=== PATIENT | female | born 1985 | race African-American/Black ===

== ENCOUNTER 2016-09-13 12:25 | Emergency (ER) | payer BC ==
[~2016-09-13] VITALS: Ht 180.3 cm; Wt 108.9 kg
[~2016-09-13 12:25] MED LIST: HYDR-2666 PO
[2016-09-13] MEDS ORDERED: IV NORMAL SALINE 1000ML BAG 1,000 ML IV ONE (13:15)
[2016-09-13 13:31] LABS: BASO % 1 % (0-3); EOS % 0 % (0-3); HEMATOCRIT 45.1 % (36.0-47.0); HEMOGLOBIN 14.4 g/dL (12.0-15.5); LYMPH # 1.4 x10^3/uL (1.0-4.8); LYMPH % 18 % (24-48); MEAN CORPUSCULAR HEMOGLOBIN 27 pg (25-35); MEAN CORPUSCULAR HGB CONC 32 g/dL (31-37); MEAN CORPUSCULAR VOLUME 83 fL (79-100); MONO % 9 % (0-9); NEUT % 73 % (31-73); PLATELET COUNT 177 x10^3/uL (140-400); RED BLOOD COUNT 5.42 x10^6/uL (3.50-5.40); RED CELL DISTRIBUTION WIDTH 13.4 % (11.5-14.5); WHITE BLOOD COUNT 7.8 x10^3/uL (4.0-11.0)
[2016-09-13 13:33] LABS: BILIRUBIN,URINE MODERATE (NEG); GLUCOSE,URINE 100 mg/dL (NEG)
[2016-09-13 13:34] LABS: BACTERIA,URINE 0 /HPF (0-FEW); CREATININE 0.9 mg/dL (0.6-1.0); NITRITE,URINE POSITIVE (NEG); POTASSIUM 3.7 mmol/L (3.5-5.1); PROTEIN,URINE >=300 mg/dL (NEG-TRACE); RBC,URINE 0 /HPF (0-2); SQUAMOUS EPITHELIAL CELL,UR FEW /LPF; UROBILINOGEN,URINE 0.2 mg/dL (0.2 mg/dL)
[2016-09-13 13:42] LABS: ALBUMIN 5.1 g/dL (3.4-5.0); ALBUMIN/GLOBULIN RATIO 1.2 (1.0-1.7); TOTAL BILIRUBIN 1.8 mg/dL (0.2-1.0); TOTAL PROTEIN 9.5 g/dL (6.4-8.2)
[2016-09-13 14:30] VITALS: BP 135/81
--- NOTE | 2016-09-13 14:40 | PHYS DOC ---
Past Medical History Past Medical History: Anxiety, Depression, Fibromyalgia, Other Additional Past Medical Histor: cervical pinched nerve Past Surgical History: No Surgical History Alcohol Use: Occasionally Drug Use: None Adult General Chief Complaint Chief Complaint: GI PROBLEM HPI HPI 30-year-old female presents with 2 day history of diarrhea. She states she has had some abdominal cramping. She denies any fever chills sweats nausea or vomiting. She denies any melena or hematochezia. No one else is been sick. [] Review of Systems Review of Systems Constitutional: Denies fever or chills [] Eyes: Denies change in visual acuity, redness, or eye pain [] HENT: Denies nasal congestion or sore throat [] Respiratory: Denies cough or shortness of breath [] Cardiovascular: No additional information not addressed in HPI [] GI: Per history of present illness : Denies dysuria or hematuria [] Musculoskeletal: Denies back pain or joint pain [] Integument: Denies rash or skin lesions [] Neurologic: Denies headache, focal weakness or sensory changes [] Endocrine: Denies polyuria or polydipsia [] Current Medications Current Medications Current Medications Medications (Trade) Dose Ordered Sig/Marie Start Time Stop Time Status Last Admin Dose Admin Sodium Chloride (Iv Sodium Chloride 0.9% 1000ml Bag) 1,000 ml @ 1,000 mls/hr 1X ONCE 09/13/16 13:15 09/13/16 14:14 DC 09/13/16 13:13 1,000 MLS/HR Allergies Allergies Allergies Coded Allergies Type Severity Reaction Last Updated Verified No Known Drug Allergies 01/29/14 No Physical Exam Physical Exam Constitutional: Well developed, well nourished, no acute distress, non-toxic appearance. [] HENT: Normocephalic, atraumatic, bilateral external ears normal, oropharynx moist, no oral exudates, nose normal. [] Eyes: PERRLA, EOMI, conjunctiva normal, no discharge. [] Neck: Normal range of motion, no tenderness, supple, no stridor. [] Cardiovascular:Heart rate regular rhythm, no murmur [] Lungs & Thorax: Bilateral breath sounds clear to auscultation [] Abdomen: Bowel sounds normal, soft, no tenderness, no masses, no pulsatile masses. [] Skin: Warm, dry, no erythema, no rash. [] Back: No tenderness, no CVA tenderness. [] Extremities: No tenderness, no cyanosis, no clubbing, ROM intact, no edema. [] Neurologic: Alert and oriented X 3, normal motor function, normal sensory function, no focal deficits noted. [] Psychologic: Affect normal, judgement normal, mood normal. [] Current Patient Data Vital Signs Vital Signs Date Time Temp Pulse Resp B/P Pulse Ox O2 Delivery O2 Flow Rate FiO2 09/13/16 12:38 98.7 100 20 100 Room Air 98.7 Lab Values Laboratory Tests Test 09/13/16 12:13 09/13/16 12:50 09/13/16 13:05 POC Urine HCG, Qualitative Hcg negative (Negative) Urine Collection Type Unknown Urine Color Yellow Urine Clarity Cloudy Urine pH 6.0 Urine Specific [place] >=1.030 Urine Protein >=300mg/dL (NEG-TRACE) Urine Glucose (UA) 100mg/dL (NEG) Urine Ketones (Stick) 40mg/dL (NEG) Urine Blood Trace (NEG) Urine Nitrite Positive (NEG) Urine Bilirubin Moderate (NEG) Urine Urobilinogen Dipstick 0.2mg/dL (0.2 mg/dL) Urine Leukocyte Esterase Trace (NEG) Urine RBC 0/HPF (0-2) Urine WBC 1-4/HPF (0-4) Urine Squamous Epithelial Cells Few/LPF Urine Bacteria 0/HPF (0-FEW) Sodium Level 141mmol/L (136-145) Potassium Level 3.7mmol/L (3.5-5.1) Chloride Level 102mmol/L (98-107) Carbon Dioxide Level 18mmol/L (21-32) L Anion Gap 21 (6-14) H Blood Urea Nitrogen 17mg/dL (7-20) Creatinine 0.9mg/dL (0.6-1.0) Estimated GFR (Cockcroft-Gault) 89.0 BUN/Creatinine Ratio 19 (6-20) Glucose Level 116mg/dL (70-99) H Calcium Level 10.0mg/dL (8.5-10.1) Total Bilirubin 1.8mg/dL (0.2-1.0) H Aspartate Amino Transferase (AST) 20U/L (15-37) Alanine Aminotransferase (ALT) 21U/L (14-59) Alkaline Phosphatase 79U/L (46-116) Total Protein 9.5g/dL (6.4-8.2) H Albumin 5.1g/dL (3.4-5.0) H Albumin/Globulin Ratio 1.2 (1.0-1.7) Lipase 102U/L (73-393) White Blood Count 7.8x10^3/uL (4.0-11.0) Red Blood Count 5.42x10^6/uL (3.50-5.40) H Hemoglobin 14.4g/dL (12.0-15.5) Hematocrit 45.1% (36.0-47.0) Mean Corpuscular Volume 83fL (79-100) Mean Corpuscular Hemoglobin 27pg (25-35) Mean Corpuscular Hemoglobin Concent 32g/dL (31-37) Red Cell Distribution Width 13.4% (11.5-14.5) Platelet Count 177x10^3/uL (140-400) Neutrophils (%) (Auto) 73% (31-73) Lymphocytes (%) (Auto) 18% (24-48) L Monocytes (%) (Auto) 9% (0-9) Eosinophils (%) (Auto) 0% (0-3) Basophils (%) (Auto) 1% (0-3) Neutrophils # (Auto) 5.7x10^3uL (1.8-7.7) Lymphocytes # (Auto) 1.4x10^3/uL (1.0-4.8) Monocytes # (Auto) 0.7x10^3/uL (0.0-1.1) Eosinophils # (Auto) 0.0x10^3/uL (0.0-0.7) Basophils # (Auto) 0.0x10^3/uL (0.0-0.2) Laboratory Tests 09/13/16 13:05 Laboratory Tests 09/13/16 12:50 EKG EKG [] Radiology/Procedures Radiology/Procedures [] Course & Med Decision Making Course & Med Decision Making Pertinent Labs and Imaging studies reviewed. (See chart for details) ED course: Evaluation reveals a 30-year-old healthy female with a benign physical exam. She had no diarrhea stools during the stay in the emergency department. She was given 1 L of IV fluid which she states made her feel better. ] Fito Disclaimer Dragon Disclaimer This electronic medical record was generated, in whole or in part, using a voice recognition dictation system. Departure Departure Impression: Primary Impression: Diarrhea Disposition: 01 HOME, SELF-CARE Condition: STABLE Referrals: UNKNOWN PCP NAME (PCP) Patient Instructions: Diarrhea Additional Instructions: Thank you for allowing us to participate in your care today. Followup with your primary care physician in 3 days if your symptoms do not improve. Return to the emergency department you have any new or concerning findings. This should be evaluated by the primary care physician and any necessary consulting services for continued management within a few days after discharge. Return to emergency room if you have any new or concerning symptoms including but not limited to fever, chills, nausea, vomiting, intractable pain, any new rashes, chest pain, shortness of air, uncontrolled bleeding, difficulty breathing, and/or vision loss. You may have been prescribed medication that can change in your level of thinking and ability to operate machinery. These medications include hydrocodone and Ativan. Also, Benadryl has been known to do this as well. Be sure to check with your pharmacist and ask if the medications you've prescribed can affect your level of consciousness. I recommend not operating heavy machinery or driving while on medication such as these. Problem Qualifiers Primary Impression: Diarrhea Diarrhea type: functional diarrhea Qualified Code: K59.1 - Functional diarrhea TEGAN SCOTT DO Sep 13, 2016 14:40
== END 2016-09-13 14:50 | disposition home or self-care (01) ==
LOC: ER 12:25
DX: R19.7 Diarrhea, unspecified (principal); R10.9 Unspecified abdominal pain; M79.7 Fibromyalgia
CPT/HCPCS: 36415; 80053; 81001; 81025; 83690; 85027; 87086; 96360; 99284; J7030

== ENCOUNTER 2017-01-16 19:39 | Emergency (ER) | payer BC ==
[~2017-01-16] VITALS: Ht 180.3 cm; Wt 102.5 kg
[~2017-01-16 19:39] MED LIST changes: -HYDR-2666 PO; +HYDR-2758 PO
[2017-01-16 20:26] VITALS: BP 145/85
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
== END 2017-01-16 20:50 | disposition home or self-care (01) ==
LOC: ER 19:39
DX: S90.31XA Contusion of right foot, initial encounter (principal); F41.9 Anxiety disorder, unspecified; F32.9 Major depressive disorder, single episode, unspecified; M79.7 Fibromyalgia; W23.0XXA Caught, crushed, jammed, or pinched between moving objects, initial encounter; Y93.89 Activity, other specified; Y92.89 Other specified places as the place of occurrence of the external cause; Y99.8 Other external cause status
CPT/HCPCS: 73630; 99284

== ENCOUNTER 2021-07-04 12:55 | Emergency (ER) | payer SELFPAY ==
[~2021-07-04] VITALS: Ht 162.6 cm; Wt 109.0 kg
[~2021-07-04 12:55] MED LIST changes: -HYDR-2758 PO; +HYDR-2761 PO
[2021-07-04] MEDS ORDERED: IV NORMAL SALINE 1000ML BAG 1,000 ML IV ONE (14:30)
[2021-07-04 14:38] LABS: BASO % 0 % (0-3); EOS # 0.1 x10^3/uL (0.0-0.7); EOS % 2 % (0-3); HEMATOCRIT 41.7 % (36.0-47.0); HEMOGLOBIN 13.7 g/dL (12.0-15.5); LYMPH # 1.7 x10^3/uL (1.0-4.8); LYMPH % 24 % (24-48); MEAN CORPUSCULAR HEMOGLOBIN 26 pg (25-35); MEAN CORPUSCULAR HGB CONC 33 g/dL (31-37); MEAN CORPUSCULAR VOLUME 78 fL (79-100); MONO # 0.5 x10^3/uL (0.0-1.1); MONO % 7 % (0-9); NEUT # 4.5 x10^3/uL (1.8-7.7); NEUT % 66 % (31-73); PLATELET COUNT 287 x10^3/uL (140-400); RED BLOOD COUNT 5.35 x10^6/uL (3.50-5.40); RED CELL DISTRIBUTION WIDTH 13.4 % (11.5-14.5); WHITE BLOOD COUNT 6.8 x10^3/uL (4.0-11.0)
[2021-07-04 14:49] LABS: CREATININE 0.8 mg/dL (0.6-1.0); GFR 98.8; POTASSIUM 3.8 mmol/L (3.5-5.1)
--- NOTE | 2021-07-04 14:53 | PHYS DOC ---
Past Medical History Past Medical History: Anxiety, Depression, Fibromyalgia, Other Additional Past Medical Histor: cervical pinched nerve (DAVE MARTINEZ APRN) Past Surgical History: No Surgical History (DAVE MARTINEZ APRN) Smoking Status: Current Every Day Smoker Alcohol Use: Occasionally Drug Use: None (DAVE MARTINEZ APRN) General Adult EDM: Chief Complaint: CHEST PAIN HPI: HPI: Patient is a 35-year-old female that presents today with substernal chest pain. Patient states the pain has been going on for a little over 7 days, patient states that she was diagnosed with COVID-19 on June 20, 2021 and she said since that time she has had some substernal chest pain with coughing and moving her arms. Patient denies shortness of air or fever. Patient states she has not had any Covid vaccines. Patient states she does smoke, she denies any long travel or swelling of bilateral legs. (DAVE MARTINEZ APRN) Review of Systems: Review of Systems: Constitutional: Denies fever or chills. [] Eyes: Denies change in visual acuity. [] HENT: Denies nasal congestion or sore throat. [] Respiratory: Denies cough or shortness of breath. [] Cardiovascular: Chest pain denies edema. [] GI: Denies abdominal pain, nausea, vomiting, bloody stools or diarrhea. [] : Denies dysuria. [] Musculoskeletal: Denies back pain or joint pain. [] Integument: Denies rash. [] Neurologic: Denies headache, focal weakness or sensory changes. [] Endocrine: Denies polyuria or polydipsia. [] Lymphatic: Denies swollen glands. [] Psychiatric: Denies depression or anxiety. [] (DAVE MARTINEZ [employer]) Heart Score: C/O Chest Pain: N/A Risk Factors: Risk Factors: DM, Current or recent (<one month) smoker, HTN, HLP, family hi story of CAD, obesity. Risk Scores: Score 0 - 3: 2.5% MACE over next 6 weeks - Discharge Home Score 4 - 6: 20.3% MACE over next 6 weeks - Admit for Clinical Observation Score 7 - 10: 72.7% MACE over next 6 weeks - Early Invasive Strategies (DAVE MARTINEZ APRN) Current Medications: Current Medications Medications (Trade) Dose Ordered Sig/Marie Start Time Stop Time Status Last Admin Dose Admin Sodium Chloride 1,000 ml @ 999 mls/hr 1X ONCE 07/04/21 14:30 07/04/21 15:30 (DAVE MARTINEZ APRN) Allergies: Allergies: Allergies Coded Allergies Type Severity Reaction Last Updated Verified No Known Drug Allergies 01/29/14 No (DAVE MARTINEZ APRN) Physical Exam: PE: Constitutional: Well developed, well nourished, no acute distress, non-toxic appearance. [] HENT: Normocephalic, atraumatic, bilateral external ears normal, oropharynx moist, no oral exudates, nose normal. [] Eyes: PERRLA, EOMI, conjunctiva normal, no discharge. [] Neck: Normal range of motion, no tenderness, supple, no stridor. [] Cardiovascular:Heart rate regular rhythm, no murmur [] Lungs & Thorax: Bilateral breath sounds clear to auscultation, patient does have chest pain with palpation to the chest wall. No lacerations, contusions, or ecchymosis noted. Abdomen: Bowel sounds normal, soft, no tenderness, no masses, no pulsatile ma sses. [] Skin: Warm, dry, no erythema, no rash. [] Back: No tenderness, no CVA tenderness. [] Extremities: No tenderness, no cyanosis, no clubbing, ROM intact, no edema. [] Neurologic: Alert and oriented X 3, normal motor function, normal sensory function, no focal deficits noted. [] Psychologic: Affect normal, judgement normal, mood normal. [] (DAVE MARTINEZ APRN) Current Patient Data: Labs: Laboratory Tests Test 07/04/21 14:10 White Blood Count 6.8 x10^3/uL Red Blood Count 5.35 x10^6/uL Hemoglobin 13.7 g/dL Hematocrit 41.7 % Mean Corpuscular Volume 78 fL Mean Corpuscular Hemoglobin 26 pg Mean Corpuscular Hemoglobin Concent 33 g/dL Red Cell Distribution Width 13.4 % Platelet Count 287 x10^3/uL Neutrophils (%) (Auto) 66 % Lymphocytes (%) (Auto) 24 % Monocytes (%) (Auto) 7 % Eosinophils (%) (Auto) 2 % Basophils (%) (Auto) 0 % Neutrophils # (Auto) 4.5 x10^3/uL Lymphocytes # (Auto) 1.7 x10^3/uL Monocytes # (Auto) 0.5 x10^3/uL Eosinophils # (Auto) 0.1 x10^3/uL Basophils # (Auto) 0.0 x10^3/uL D-Dimer (Lina) < 0.27 ug/mlFEU Sodium Level 139 mmol/L Potassium Level 3.8 mmol/L Chloride Level 102 mmol/L Carbon Dioxide Level 30 mmol/L Anion Gap 7 Blood Urea Nitrogen 8 mg/dL Creatinine 0.8 mg/dL Estimated GFR (Cockcroft-Gault) 98.8 BUN/Creatinine Ratio 10 Glucose Level 89 mg/dL Calcium Level 9.0 mg/dL Total Bilirubin 0.6 mg/dL Aspartate Amino Transf (AST/SGOT) 24 U/L Alanine Aminotransferase (ALT/SGPT) 34 U/L Alkaline Phosphatase 106 U/L Total Protein 8.1 g/dL Albumin 3.8 g/dL Albumin/Globulin Ratio 0.9 Current Medications Medications (Trade) Dose Ordered Sig/Marie Route PRN Reason Start Time Stop Time Status Last Admin Dose Admin Sodium Chloride 1,000 ml @ 999 mls/hr 1X ONCE IV 07/04/21 14:30 07/04/21 15:30 DC 07/04/21 14:30 Laboratory Tests Test 07/04/21 14:10 White Blood Count 6.8 x10^3/uL (4.0-11.0) Red Blood Count 5.35 x10^6/uL (3.50-5.40) Hemoglobin 13.7 g/dL (12.0-15.5) Hematocrit 41.7 % (36.0-47.0) Mean Corpuscular Volume 78 fL (79-100) L Mean Corpuscular Hemoglobin 26 pg (25-35) Mean Corpuscular Hemoglobin Concent 33 g/dL (31-37) Red Cell Distribution Width 13.4 % (11.5-14.5) Platelet Count 287 x10^3/uL (140-400) Neutrophils (%) (Auto) 66 % (31-73) Lymphocytes (%) (Auto) 24 % (24-48) Monocytes (%) (Auto) 7 % (0-9) Eosinophils (%) (Auto) 2 % (0-3) Basophils (%) (Auto) 0 % (0-3) Neutrophils # (Auto) 4.5 x10^3/uL (1.8-7.7) Lymphocytes # (Auto) 1.7 x10^3/uL (1.0-4.8) Monocytes # (Auto) 0.5 x10^3/uL (0.0-1.1) Eosinophils # (Auto) 0.1 x10^3/uL (0.0-0.7) Basophils # (Auto) 0.0 x10^3/uL (0.0-0.2) Laboratory Tests 07/04/21 14:10 Vital Signs: Vital Signs Date Time Temp Pulse Resp B/P (MAP) Pulse Ox O2 Delivery O2 Flow Rate FiO2 07/04/21 16:04 98 16 143/89 (107) 98 07/04/21 13:50 98.7 115 20 149/77 (101) 99 Room Air 98.7 Vital Signs Date Time Temp Pulse Resp B/P (MAP) Pulse Ox O2 Delivery O2 Flow Rate FiO2 07/04/21 13:50 98.7 115 20 149/77 (101) 99 Room Air 98.7 (DAVE MARTINEZ [employer]) EKG: EKG: EKG done at [address] Brice at 1322 sinus rhythm no ectopy at a rate of 95 no STEMI HI interval of 148 ms with a QTC of 453 ms [] (DAVE MARTINEZ [employer]) Radiology/Procedures: Radiology/Procedures: REASON: cough, covid + PROCEDURE: CHEST AP ONLY EXAM: Chest, single view. HISTORY: Cough. Covid 19. COMPARISON: None. FINDINGS: A frontal view of the chest is obtained. There is no infiltrate, pleural effusion or pneumothorax. The heart is normal in size. IMPRESSION: No acute pulmonary finding. Electronically signed by: Harika Head MD (07/04/2021 2:53 PM) [id number][] (DAVE MARTINEZ APRN) Course & Med Decision Making: Course & Med Decision Making Pertinent Labs and Imaging studies reviewed. (See chart for details) 1545 did review radiological and laboratory results with patient. Did inform her there is no acute process at this time. Did inform her that post Covid we are seeing patients with a delayed recovery from the COVID-19, and told her to follow-up with her primary care physician or one of the clinics that was provided on the brochure for further management of this. Patient denies smoking, I did inform her that a cool-mist humidifier may help with breathing. Patient is agreeable with the plan of care going home and manage as an outpatient basis and following up with her primary care physician or one of the clinics provided. (DAVE MARTINEZ APRN) Dragon Disclaimer: Dragon Disclaimer: This electronic medical record was generated, in whole or in part, using a voice recognition dictation system. (DAVE MARTINEZ APRN) Departure Departure Impression: Primary Impression: Cough in adult Disposition: 01 HOME / SELF CARE / HOMELESS Condition: STABLE Referrals: UNKNOWN PCP NAME (PCP) Patient Instructions: Cough, Adult Additional Instructions: Cool-mist humidifier to help with dryness Follow-up with your primary care physician or one of the clinics provided in the brochure for further management of your cough and chest wall pain from your COVID-19. Return to the emergency department for increased chest pain that does not go away, increased shortness of air or increased work of breathing, development of a fever, or bluing of your lips or face. Attending Signature Attending Signature I have reviewed the PA/LOAN CONSULTANT's note and plan of care. I was available for consultation as needed during the patient's visit in the emergency department. I agree with the clinical impression, plan, and disposition. (JOSSELYN BRICE DO) DAVE MARTINEZ APRN Jul 04, 2021 14:53 JOSSELYN BRICE DO Jul 05, 2021 11:10
--- NOTE | 2021-07-04 14:55 | RAD ---
EXAM: Chest, single view. HISTORY: Cough. Covid 19. COMPARISON: None. FINDINGS: A frontal view of the chest is obtained. There is no infiltrate, pleural effusion or pneumo thorax. The heart is normal in size. IMPRESSION: No acute pulmonary finding. Electronically signed by: Harika Head MD (07/04/2021 2:53 PM) [id number]
[2021-07-04 14:57] LABS: ALBUMIN 3.8 g/dL (3.4-5.0); ALBUMIN/GLOBULIN RATIO 0.9 (1.0-1.7); TOTAL BILIRUBIN 0.6 mg/dL (0.2-1.0); TOTAL PROTEIN 8.1 g/dL (6.4-8.2)
[2021-07-04 16:04] VITALS: BP 143/89
== END 2021-07-04 16:20 | disposition home or self-care (01) ==
LOC: ER 12:55
DX: R05.9 Cough, unspecified (principal); R07.2 Precordial pain; F32.9 Major depressive disorder, single episode, unspecified; F41.9 Anxiety disorder, unspecified; F17.200 Nicotine dependence, unspecified, uncomplicated
CPT/HCPCS: 36415; 71045; 80053; 85025; 85379; 96360; 99284; J7030